=== PATIENT | male | born 2005 | race Caucasian/White ===

== ENCOUNTER 2025-04-10 20:00 | Emergency (ER) | payer BC, MEDICAID, SELFPAY ==
[~2025-04-10] VITALS: Ht 172.7 cm; Wt 84.2 kg
[~2025-04-10 20:00] MED LIST: NO HOME MEDS
[2025-04-10 20:02] VITALS: TEMP 98
--- NOTE | 2025-04-10 20:32 | RADIOLOGY REPORT ---
EXAM: DI KNEE LIMITED (AP/LAT) CLINICAL INDICATION: KNEE PAIN RIGHT TECHNIQUE: DI KNEE LIMITED (AP/LAT) Comparison: None FINDINGS/IMPRESSION: There is no evidence of acute fracture or dislocation. The visualized joint space is well maintained. The alignment is anatomical. There is no radiopaque foreign body.
--- NOTE | 2025-04-10 21:48 | Physician Documentation ---
History of Present Illness ~ Chief Complaint: Laceration Stated Complaint: LEG LAC Time Seen by MD: 20:29 Mode of Arrival: POV, Ambulatory HPI Patient is seen today with complaints of laceration to the lateral aspect of his right knee with pulsatile blood. Patient applied his own tourniquet for about an hour but the bleeding persisted which is what brought the patient in today. Patient does admit to significant history of methamphetamine use. Patient states he had been pulling a bike trailer and got frustrated and pulled it forcibly and accidentally hit his knee with a sharp edge and cut his knee. Patient states he can not remember the last tetanus shot he has had. Patient has no other concern or complaint at this time. Patient states injury happened just prior to arrival today. Tetanus Within 5 Years: No Medication Reconciliation Allergies: Coded Allergies: No Known Allergies (Unverified , 09/26/20) Miscellaneous Medications Home Med List (No Home Medications), (Reported) Past Medical History Past Medical History: GERD Drug Use: methamphetamine Lives with: Family Lives In: Home Review of Systems Constitutional: Denies: chills, fever, weakness Eyes: Denies: pain, blurred vision ENT: Denies: ear pain, nose pain, throat pain, mouth pain Respiratory: Denies: cough, shortness of breath Cardiovascular: Denies: chest pain, palpitations Gastrointestinal: Denies: abdominal pain, nausea, vomiting Genitourinary: Denies: burning, dysuria Male Genitalia: Denies: penile discharge, testicular pain Neurological: Denies: headache, dizziness Musculoskeletal: Denies: pain, swelling Integumentary: Denies: rash, lesions Allergic/Immunologic: Denies: hives, itching Hematologic/Lymphatic: Denies: no symptoms reported Psychiatric: Denies: depression, anxiety Physical Exam Vital Signs: Temperature: 98.0, Heart Rate: 72, Respiratory Rate: 14, BP: 128/84, Pulse Oximetry: 99 Oxygen Flow Rate: 0 Physical Exam General: Awake and Alert, no acute distress. HEENT: Conjunctiva pink, Sclera clear, Mucus Membranes moist. Neck: Supple without masses and tenderness. Resp: Unlabored. Lungs clear to auscultation bilaterally. Heart: Regular Rate and rhythm, normal S1 and S2 without murmur, rub or gallop. Extremities: No cyanosis,clubbing or edema. Skin: Warm and Dry. Procedures Laceration/Wound Repair Laceration : Procedure Note Procedure note: 10 cc of lidocaine 1% with epinephrine was used to achieve local anesthesia of the 4 cm laceration to the lateral aspect of the right knee. Patient tolerated well. Hemostasis was achieved via lidocaine with epi. Wound was irrigated with copious amounts of normal saline and iodine. 4-0 Ethilon running suture was used to achieve closure. Adhesive bandage placed over repair site. Progress Results/Orders Results/Orders Completed Orders - ANDRES TORRES PAC Tetanus/Pertuss/Diph Acell/Pf (Boostrix (04/10/25 21:45) Vital Signs 04/10/25 04/10/25 04/10/25 04/10/25 20:02 20:10 20:10 20:33 Temp 98.0 Pulse 102 89 72 Resp 16 16 18 14 B/P (MAP) 138/88 128/84 (99) 128/84 (99) Pulse Ox 98 100 99 O2 Flow Rate 0 EKG/XRAY/CT/US/VASC/MRI Bone/Soft Tissue X-Ray (Ext.) : Additional Comment X-ray of right knee interpreted by myself today shows no sign of acute fracture, bones in anatomic alignment, no foreign body appreciated DIAGNOSTIC RADIOLOGY Patient: YUNI YANEZ Medical Record: [id number] 2005, Age: 20 Sex: Male Location: ER Patient Status: REG ER Service Date/Time: 04/10/252019 Ordering Physician: CARO HAMMOND MD Exam: KNEE LIMITED (AP/LAT) EXAM: DI KNEE LIMITED (AP/LAT) CLINICAL INDICATION: KNEE PAIN RIGHT TECHNIQUE: DI KNEE LIMITED (AP/LAT) Comparison: None FINDINGS/IMPRESSION: There is no evidence of acute fracture or dislocation. The visualized joint space is well maintained. The alignment is anatomical. There is no radiopaque foreign body. Electronically Signed by:BUCK LUCAS MD Date & Time: 04/10/252029 Dictated by: BUCK LUCAS MD Dictation date and time: 04/10/252029 Primary Care Provider: NO PRIMARY CARE PROVIDER cc: CARO HAMMOND MD ~ Medical Decision Making Findings Patient is seen today with complaints of laceration to the lateral aspect of his right knee with pulsatile blood. Patient applied his own tourniquet for about an hour but the bleeding persisted which is what brought the patient in today. Patient does admit to significant history of methamphetamine use. Patient states he had been pulling a bike trailer and got frustrated and pulled it forcibly and accidentally hit his knee with a sharp edge and cut his knee. Patient states he can not remember the last tetanus shot he has had. Patient has no other concern or complaint at this time. Patient states injury happened just prior to arrival today. Patient tolerated running suture laceration repair well today. Sutures will need to be removed in 7-10 days. Patient will follow up with primary care in 3- 5 days if no better as needed sooner. Return to ED with any worsening, concerning or changing symptoms. Patient may wash with clean soap and water. Avoid immersion with any liquid. Keep repair site clean and dry. Departure Disposition: 01 HOME / SELF CARE / HOMELESS Impression: Primary Impression: Laceration Condition: Improved Discharge Instructions: Laceration Care, Adult, [id number] Additional Instructions: Patient tolerated running suture laceration repair well today. Sutures will need to be removed in 7-10 days. Patient will follow up with primary care in 3- 5 days if no better as needed sooner. Return to ED with any worsening, concerning or changing symptoms. Patient may wash with clean soap and water. Avoid immersion with any liquid. Keep repair site clean and dry. Referrals: NO PRIMARY CARE PROVIDER (PCP) Signature Scribe Signature: No scribe Attestation: No scribe ANDRES TORRES Apr 10, 2025 21:48
[2025-04-10] MEDS: TETanus/Pertussis (Acell)/Diphther VAC/PF (Tdap-Adult) 0.5ml syringe IMVAC ONE (22:11)
[2025-04-10 22:20] VITALS: BP 138/73; PULSE 63; RESP 12; O2SAT 99
== END 2025-04-10 22:23 | disposition home or self-care (01) ==
LOC: ER 20:00
DX: S81.011A Laceration without foreign body, right knee, initial encounter (principal); F15.90 Other stimulant use, unspecified, uncomplicated; W45.8XXA Other foreign body or object entering through skin, initial encounter; Y93.89 Activity, other specified; Y92.89 Other specified places as the place of occurrence of the external cause; Y99.8 Other external cause status
CPT/HCPCS: 12002; 73560; 90471; 90715; 99283; J7030; A6258; A6449

== ENCOUNTER 2025-09-06 12:19 | Inpatient (IN) | payer MEDICAID ==
[~2025-09-06] VITALS: Ht 172.7 cm; Wt 90.9 kg
[~2025-09-06 12:19] MED LIST changes: +CEPH-585 PO
--- NOTE | 2025-09-06 12:32 | Physician Documentation ---
History of Present Illness ~ Chief Complaint: Wound Stated Complaint: R HAND PAIN Time Seen by MD: 12:30 HPI This is a 20-year-old male who admits to a history of methamphetamine and nicotine abuse. Today due to concerns for infection in the right hand, specifically the base of the right thumb. He reports there are two puncture wounds to the lateral aspect of the right thumb. There are two scabs to the dorsum of the right hand. He denies chills or fever, but does note that he feels overall unwell. He presented to the [facility] today, and was directed to the ER. Unknown last tetanus. Tetanus within 5 years?: No Medication Reconciliation Allergies: Coded Allergies: No Known Allergies (Unverified , 09/06/25) Scheduled Cephalexin*Monohydrate* (Keflex*), 1 CAP PO QID Miscellaneous Medications Home Med List (No Home Medications), (Reported) Past Medical History Past Medical History: GERD Drug Use: methamphetamine Lives with: Family Lives In: Home Review of Systems ROS As stated above in the HPI, otherwise all systems are reviewed and negative. Physical Exam Vital Signs: Temperature: 96.3, Source: Temporal, Heart Rate: 98, Respiratory Rate: 15, BP: 151/53, Pulse Oximetry: 100, Weight: 90.900 Physical Exam General: Alert, no apparent distress. Neck: Full range of motion. Respiratory: Lungs clear, no respiratory distress. Chest: No accessory muscle use. Cardiovascular: Regular rate and rhythm, no murmurs. Gastrointestinal: Soft, nontender, nondistended. Bowels sounds present. Extremities: 2+ edema with erythema right hand. Two scabbed areas dorsum right hand. Erythema/purulence/deep wounds to medial/lateral aspect right thumb. Neurologic: Oriented x4. Psychiatric: Normal mood and affect. Skin: Normal color, warm and dry. Progress Progress Note 1440: EDMD [place]wood at bedside for u.s. Notes that he does not see fluid surrounding the flexor tendon but does see soft tissue swelling with marbling. 1444: Contacted integrated logistics operations manager ortho Dr. Powers who agrees to consult. Will page hospitalist. Results/Orders Results/Orders Orders - ROSA PERKINS NP Culture Blood (09/06/25 12:30) Hand, Complete (3vw Min) (09/06/25 12:30) Dressing Orders (09/06/25 12:30) Wound Care Orders (09/06/25 12:30) * Iv Access / Saline Lock * (09/06/25 12:33) Page Hospitalist (09/06/25 ) Vancomycin 2gm/400ml H20 (Peg) (Vancomyc (09/06/25 14:55) Completed Orders - ROSA PERKINS ANIMAL STICKER Cbc/Diff (09/06/25 12:30) Procalcitonin (09/06/25 12:30) BMP (09/06/25 12:30) Lacticsepsis (09/06/25 12:30) C-Reactive Protein (09/06/25 12:30) Hand, Complete (3vw Min) (09/06/25 12:30) Tetanus/Pertuss/Diph Acell/Pf (Boostrix (09/06/25 12:30) Ceftriaxone/X0j-Iaoipfpi 1gm (Rocephin 1 (09/06/25 13:10) Vancomycin Inj (Vancomycin Inj) (09/06/25 14:55) Medications Received in ER Medications (Trade) Dose Ordered Sig/Vel Route PRN Reason Start Time Stop Time Status Last Admin Dose Admin (Boostrix vaccine syringe) 0.5 ml ONCE ONCE IMVAC 09/06/25 12:30 09/06/25 12:32 DC 09/06/25 12:50 0.5 ML Ceftriaxone Sodium 50 ml @ 100 mls/hr ONCE ONCE IV 09/06/25 13:10 09/06/25 13:39 DC 09/06/25 13:33 100 MLS/HR Vital Signs 09/06/25 09/06/25 09/06/25 12:26 13:37 13:41 Temp 96.3 Pulse 98 82 Resp 15 16 16 B/P (MAP) 151/53 137/84 (101) Pulse Ox 100 94 O2 Flow Rate 0 Laboratory Tests Test 09/06/25 12:44 White Blood Count 8.1 Red Blood Count 4.84 Hemoglobin 14.4 Hematocrit 42.8 Mean Corpuscular Volume 88.5 Mean Corpuscular Hemoglobin 29.7 Mean Corpuscular Hemoglobin Concent 33.6 Red Cell Distribution Width 13.3 Platelet Count 570 H Mean Platelet Volume 5.7 L Neutrophils (%) (Auto) 71.6 Lymphocytes (%) (Auto) 17.8 L Monocytes (%) (Auto) 9.0 Eosinophils (%) (Auto) 0.9 Basophils (%) (Auto) 0.7 Neutrophils # (Auto) 5.8 Lymphocytes # (Auto) 1.4 Monocytes # (Auto) 0.7 Eosinophils # (Auto) 0.1 Basophils # (Auto) 0.1 CBC Comment Sodium Level 141 Potassium Level 3.7 Chloride Level 104 Carbon Dioxide Level 32.8 H Anion Gap 4 L Blood Urea Nitrogen 12 Creatinine 0.75 Estimated GFR/1.73 m2 > 90 BUN/Creatinine Ratio 16.0 Glucose Level 91 Lactic Acid Level 1.0 Calcium Level 8.6 C-Reactive Protein 3.64 H Albumin 3.0 L Procalcitonin < 0.05 Chemistry Comments Microbiology Date/Time Source Procedure Growth Status 09/06/25 12:45 Blood Iv Start Blood Culture - Preliminary NEGATIVE (LESS THAN 24 HOURS) Resulted EKG/XRAY/CT/US/VASC/MRI Bone/Soft Tissue X-Ray (Spine) : Additional Comment [place] [id number] DIAGNOSTIC RADIOLOGY Patient: YUNI YANEZ Medical Record: [id number] [facility] 2005, Age: 20 Sex: Male Location: ER Patient Status: REG ER Service Date/Time: 09/06/25 1230 Ordering Physician: ROSA PERKINS NP Exam: HAND, COMPLETE (3VW MIN) EXAM: DI HAND, COMPLETE (3VW MIN) CLINICAL INDICATION: trauma, swelling TECHNIQUE: DI HAND, COMPLETE (3VW MIN) Comparison: None FINDINGS/IMPRESSION: There is no evidence of acute fracture or dislocation. Diffuse soft tissue swelling The alignment is anatomical. There is no radiopaque foreign body. Electronically Signed by:BUCK LUCAS MD Date & Time: 09/06/25 1308 Dictated by: BUCK LUCAS MD Dictation date and time: 09/06/25 1308 Primary Care Provider: NO PRIMARY CARE PROVIDER cc: ROSA PERKINS ANIMAL STICKER ~ Medical Decision Making Additional information obtaine: old records Findings Patient is a poor historian. Seen 04/17/25 for suture removal. Differential Dx:Considerations: Include: Abscess, Cellulitis Additional Comment Assessment and Plan: Cellulitis, right hand, severe nonpurulent with high risk for MRSA The patient presents with marked swelling and cellulitis of the right hand base of thumb with two apparent puncture wounds of unknown etiology. Given the patient's history of methamphetamine use and homelessness, along with the presence of puncture wounds, this presentation is concerning for injection- related skin and soft tissue infection. Risk Stratification: The patient meets criteria for severe nonpurulent cellulitis requiring MRSA coverage based on multiple high-risk features: active injection drug use, penetrating trauma (puncture wounds), and elevated inflammatory markers (CRP). While the patient does not meet SIRS criteria (afebrile, normal vital signs, normal WBC), the combination of injection drug use and penetrating trauma mandates empiric MRSA and streptococcal coverage per IDSA guidelines. [1] Microbiology Considerations: The majority of cellulitis cases are nonculturable, with causative bacteria identified in only 15% of cases. When organisms are identified, ?-hemolytic Streptococcus and Staphylococcus aureus are most common. In patients with injection drug use, MRSA prevalence is significantly elevated, and empiric coverage is strongly recommended. [1-2] Diagnostic Workup: Blood cultures were obtained prior to antibiotic administration as recommended for patients with risk factors including injection drug use. Routine cultures of cutaneous aspirates or biopsies are not indicated for typical cellulitis, but blood cultures are specifically recommended in this clinical context. Given the puncture wounds, consideration was given to obtaining wound cultures, though optimal timing would be post-debridement if surgical intervention becomes necessary. Treatment Plan: Initiated empiric intravenous vancomycin with dosing calculated for 90 kg body weight with normal renal function (loading dose 2,250 mg, followed by maintenance dosing targeting AUC 400-600). Vancomycin was selected as it provides coverage against both MRSA and streptococci, which is the recommended empiric regimen for severe nonpurulent cellulitis in patients with injection drug use. The patient also received two grams Ceftriaxone IV. His tetanus was updated. Alternative agents considered included linezolid, daptomycin, or ceftaroline, all of which provide dual MRSA and streptococcal coverage. Vancomycin was chosen as first-line therapy per IDSA guidelines for severe infection. Duration: Plan for minimum 5-day course of antimicrobial therapy with extension if infection has not improved within this timeframe. Clinical response will be assessed daily with particular attention to reduction in erythema, swelling, and tenderness. Departure Time of Disposition: 14:53 Disposition: ADMITTED INPATIENT Admitted to Inpatient Unit: yes, to hospitalist Impression: Primary Impression: Cellulitis of right hand Referrals: NO PRIMARY CARE PROVIDER (PCP) Signature Scribe Signature: x Attestation: The note accurately reflects work and decisions made by me.Rosa Springer NP 09/06/25 13:15 ROSA PERKINS NP Sep 06, 2025 12:32
[2025-09-06] MEDS: TETanus/Pertussis (Acell)/Diphther VAC/PF (Tdap-Adult) 0.5ml syringe IMVAC ONE (12:50)
[2025-09-06 12:52] LABS: MEAN PLATELET VOLUME 5.7 FL (7.4-10.4); RED CELL DISTRIBUTION WIDTH 13.3 % (11.5-14.5)
[2025-09-06 13:10] LABS: CREATININE 0.75 MG/DL (0.60-1.10); TOTAL CARBON DIOXIDE 32.8 MMOL/L (24-32); eCRCL 149 ML/MIN; eGFR > 90 ML/MIN
--- NOTE | 2025-09-06 13:10 | RADIOLOGY REPORT ---
EXAM: DI HAND, COMPLETE (3VW MIN) CLINICAL INDICATION: trauma, swelling TECHNIQUE: DI HAND, COMPLETE (3VW MIN) Comparison: None FINDINGS/IMPRESSION: There is no evidence of acute fracture or dislocation. Diffuse soft tissue swelling The alignment is anatomical. There is no radiopaque foreign body.
[2025-09-06] MEDS: CefTRIAXone/D5W-Rocephin 1gm 50 ML IV ONE (13:33)
[2025-09-06] MEDS ORDERED: HYDROcodone/acetaminophen 10/325mg tab PO PRN (14:55)
[2025-09-06] MEDS ORDERED: ondansetron/PF 4mg/2ml inj IV PRN (14:55)
[2025-09-06] MEDS ORDERED: bisacodyl 10mg suppository rectal RC PRN (14:55)
[2025-09-06] MEDS ORDERED: potassium Cl 40MEQ/1/2NS 520ml 520 ML IV PRN (14:55)
[2025-09-06] MEDS ORDERED: vancomycin inj 2,000 MG in normal saline 500ml IV soln 500 ML IV ONE (14:55)
[2025-09-06] MEDS ORDERED: magnesium Cl slow-release 64mg tablet PO PRN (14:55)
[2025-09-06] MEDS ORDERED: magnesium sulf-water 2g/50mL 50 ML IV PRN (14:55)
[2025-09-06] MEDS ORDERED: potassium Cl 20 mEq SR tablet PO PRN ×2 (14:55)
[2025-09-06] MEDS ORDERED: magnesium sulf-water 4G/100mL 100 ML IV PRN (14:55)
[2025-09-06] MEDS ORDERED: magnesium hydroxide 30ml (MOM) UD suspension PO PRN (14:55)
[2025-09-06] MEDS: VANCOMYCIN 2GM/400ML H20 (PEG) 400 ML IV ONE (15:22)
[2025-09-06] MEDS: normal saline 1000ml 1,000 ML IV SCH (15:23)
[2025-09-06 18:00] VITALS: BP 129/81; PULSE 88; RESP 16; TEMP 97.7; O2SAT 98
[2025-09-06] MEDS: K and/or MAG REPLACEMENT MC SCH (19:37)
[2025-09-06 20:00] VITALS: RESP 18; O2SAT 98
[2025-09-06] MEDS: heparin, porcine 5000 units/ml vial SQ SCH (20:07)
--- NOTE | 2025-09-06 20:11 | HISTORY AND PHYSICAL ---
History & Physical Providers to ~ History of Present Illness Reason for Admit\Complaint: Right thumb wound History of Present Illness This is a 20-year-old male who admits to a history of methamphetamine and nicotine abuse. Today due to concerns for infection in the right hand, specifically the base of the right thumb. He reports there are two puncture wounds to the lateral aspect of the right thumb. There are two scabs to the dorsum of the right hand. He denies chills or fever, but does note that he feels overall unwell. He presented to the [facility] today, and was directed to the ER. In ER patient received tetanus vaccine and IV ceftriaxone one dose. Hospitalist services contacted for admission and further management. Allergies: Coded Allergies: No Known Allergies (Unverified , 09/06/25) Home Medications Home Medications Active Keflex* (Cephalexin HCl) 500 Mg Capsule 1 Cap PO QID Reported No Home Medications (Home Med List) Each Past Medical History Past Medical History GERD Past Surgical History Surgical History Comment No Pertinent surgical history Past Social History Social History Comment As per patient his mom lives in [facility], he is currently homeless and unemployed. Admitted that he used meth day before yesterday does smoke cigarettes. He is able to walk . ROS ROS Review of system as mentioned above in HPI rest of the review of system unremarkable Exam Vitals: Vital Signs Date Time Temp Pulse Resp B/P (MAP) Pulse Ox O2 Delivery O2 Flow Rate FiO2 09/06/25 18:00 97.7 88 16 129/81 (97) 98 Room Air 09/06/25 13:41 0 General: General-patient not in any acute distress, alert awake oriented, age-appropriate , ill apearing HEENT-atraumatic normocephalic, neck supple without elevated JVD, no thyromegaly or carotid bruit. No lymphadenopathy bilaterally. Eyes-no icterus or pallor seen in eyes Chest-clear to auscultation bilaterally, breathing nonlabored no tachypnea, no wheezing, no crepitation, no crackles. Heart-S1-S2 normal, regular heart rate no murmur Abdomen bowel sounds positive on auscultation, soft nondistended nontender no guarding, no rigidity Skin /Extremity- open wound present over flexor surface of right thumb , no pus discharge noticed on palpation , patient is unable to flex and make a reproducer from right hand no pedal edema able to move all 4 extremities/ambulate Neurology-grossly intact, nonfocal alert awake oriented Psychiatry - patient is not confused or agitated cooperated during physical examination Diagnostic Data Last Recorded Lab Results: 09/06/25 1244 09/06/25 1244 Advance Care Planning Advanced Care plannin - 30 Minutes Additional Plan This is a 20-year-old male who admits to a history of methamphetamine and nicotine abuse. He is admitted today for open wound specifically the base of the right thumb. ER provider Contacted instructional writer ortho Dr. Powers who agrees to consult. Patient is started on IV antibiotic therapy we will keep patient NPO after midnight Patient is strongly advised to stop recreational drugs and tobacco and risk and consequences explained. Patient he is not taking any medication in outpatient setting and does not have any PCP. Follows with minor suarez. We will continue to monitor patient's labs and vitals closely . All labs, diagnostic workup, old records and ER records reviewed . Code status discussed with the patient patient wishes full code . Time spent in discussing code status 16 minutes. Further management depending on response to treatment and as per recommendation by talent development specialist I will continue to follow patient in a.m. Date of Service: Sep 06, 2025 Billing Provider: CONSTANCE PEREZ MD Common Visit Codes: [id number] INP/OBS CARE (HIGH) Secondary Visit Codes: 16538-[id number] CARE PLAN 30 MINUTES CONSTANCE PEREZ MD Sep 06, 2025 20:11
[2025-09-06] MEDS: nicotine 14mg patch - 24hr TD SCH (21:33)
[2025-09-06 22:00] VITALS: BP 124/56; PULSE 96; RESP 18; TEMP 97.9; O2SAT 98
[2025-09-06] MEDS: vancomycin/NS 1 GM ADD-VANTAGE 250 ML IV SCH (23:03)
[2025-09-07] VITALS (7 sets, daily range): BP systolic 121–126; BP diastolic 44–66; PULSE 76–99; RESP 15–18; TEMP 97.4–99.4; O2SAT 99–100
[2025-09-07] MEDS: HYDROcodone/acetaminophen 5mg/325mg tablet PO PRN (05:12)
[2025-09-07 06:46] LABS: MEAN PLATELET VOLUME 5.9 FL (7.4-10.4); RED CELL DISTRIBUTION WIDTH 13.3 % (11.5-14.5)
[2025-09-07 07:13] LABS: CREATININE 0.72 MG/DL (0.60-1.10); TOTAL CARBON DIOXIDE 30.0 MMOL/L (24-32); eCRCL 156 ML/MIN; eGFR > 90 ML/MIN
[2025-09-07] MEDS ORDERED: morphine 4 MG/ML inj SYRINge IV PRN ×2 (13:06)
--- NOTE | 2025-09-07 14:01 | CONSULTATION REPORT ---
History of Present Illness Providers to CC ~ Reason for Admit\Admit Dx: Right thumb INFECTION Refering MD: dR [email or web address] History of Present Illness This is a 20-year-old male who admits to a history of methamphetamine and nicotine abuse. Today due to concerns for infection in the right hand, specifically the base of the right thumb. He reports there are two puncture wounds to the lateral aspect of the right thumb. Because of increased pain and swelling he presented to the ER where he was admitted. He denies any injection site or puncture wounds or any injury such as a bug bite Allergies: Coded Allergies: No Known Allergies (Unverified , 09/06/25) Home Medications Home Medications Active Keflex* (Cephalexin HCl) 500 Mg Capsule 1 Cap PO QID Reported No Home Medications (Home Med List) Each Physical Exam Last Vital Signs Recorded: Temperature: 99.4, Source: Axillary, Heart Rate: 95, Respiratory Rate: 18, BP: 122/46, Pulse Oximetry: 100, Weight: 90.900 General Appearance: alert, no apparent distress Extremities There is moderate swelling of the right thumb with an abrasion. I do not see any deep abscess or extension into the tendon sheath or the joint. His thumb flexor and extensor is functioning. He admits to having sensation to light touch of the tip of the thumb. There was no tenderness over the index where the palm where the flexor tendons. Results Diagram Lab Result Diagram: 09/07/25 0547 09/07/25 0547 Assessment/Plan Problems/Diagnosis: (1) Wound cellulitis Additional Plan Continue antibiotics and wound dressing changes with the wound care. I will follow up with him and visit him in the next 24 hours to see if he is making progress. STEFANO TERESA Jr., MD Sep 07, 2025 14:01
[2025-09-07] MEDS: VANCOMYCIN/WATER FOR INJ (PEG) 1.5GM/300 ML IVPB IV SCH (16:32)
[2025-09-07] MEDS: VANCOMYCIN LEVEL IV ONE (19:04)
--- NOTE | 2025-09-07 19:26 | PROGRESS NOTE ---
Daily Progress Note Providers to CC ~ Antibiotic Timeout Antibiotic Ordered?: Yes Subjective Patient was seen in presence of nursing staff today. Wound dressing done for right thumb wound . Patient was evaluated by Dr. Powers today. he recommended to Continue antibiotics and wound dressing changes with the wound care. he will follow up with him in the next 24 hours to see if he is making progress. Objective Vital Signs Date Time Temp Pulse Resp B/P (MAP) Pulse Ox O2 Delivery O2 Flow Rate FiO2 09/07/25 18:00 97.4 99 16 121/54 (76) 99 Room Air 09/06/25 13:41 0 Result Diagram: 09/07/25 0547 09/07/25 0547 General-patient not in any acute distress, alert awake oriented, age-appropriate HEENT-atraumatic normocephalic, neck supple without elevated JVD, no thyromegaly or carotid bruit. No lymphadenopathy bilaterally. Eyes-no icterus or pallor seen in eyes Chest-clear to auscultation bilaterally, breathing nonlabored no tachypnea, no wheezing, no crepitation, no crackles. Heart-S1-S2 normal, regular heart rate no murmur Abdomen bowel sounds positive on auscultation, soft nondistended nontender no guarding, no rigidity Skin /Extremity- wound dressing present over right thumb. patient is unable to flex and make a poultry killer from right hand no pedal edema able to move all 4 extremities/ambulate Neurology-grossly intact, nonfocal alert awake oriented Psychiatry - patient is not confused or agitated cooperated during physical examination Problem\Assessment\Plan This is a 20-year-old male who admits to a history of methamphetamine and nicotine abuse. He is admitted today for open wound specifically the base of the right thumb. ER provider Contacted concrete inspector ortho Dr. Powers who agrees to consult. # right thumb wound- Patient is started on IV antibiotic therapy. Dr. Powers consulted on this patient and he recommended to Continue antibiotics and wound dressing changes with the wound care. he will follow up with him in the next 24 hours to see if he is making progress. # history of methamphetamine and nicotine abuse.Patient is strongly advised to stop recreational drugs and tobacco and risk and consequences explained. Patient he is not taking any medication in outpatient setting and does not have any PCP. # Code status discussed with the patient patient wishes full code . We will continue to monitor patient's labs and vitals closely . Further management depending on response to treatment and as per recommendation by air quality specialist I will continue to follow patient in a.m. Date of Service: Sep 07, 2025 Billing Provider: CONSTANCE PEREZ MD Common Visit Codes: [id number] INP/OBS CARE(MOD) CONSTANCE PEREZ MD Sep 07, 2025 19:26
[2025-09-08 05:52] LABS: MEAN PLATELET VOLUME 5.8 FL (7.4-10.4); RED CELL DISTRIBUTION WIDTH 13.5 % (11.5-14.5)
[2025-09-08 06:00] VITALS: BP 127/65; PULSE 68; RESP 15; TEMP 97.6; O2SAT 99
[2025-09-08 06:10] LABS: CREATININE 0.69 MG/DL (0.60-1.10); TOTAL CARBON DIOXIDE 30.2 MMOL/L (24-32); eCRCL 162 ML/MIN; eGFR > 90 ML/MIN
[2025-09-08 08:00] VITALS: RESP 15; O2SAT 99
[2025-09-08] MEDS ORDERED: ACET-1008 PO (13:37)
[2025-09-08] MEDS ORDERED: NICO-631 TD (13:37)
[2025-09-08] MEDS ORDERED: CEPH250T PO (13:37)
[2025-09-08] MEDS ORDERED: VANCOMYCIN LEVEL IV ONE (15:30)
--- NOTE | 2025-09-08 19:36 | DISCHARGE SUMMARY ---
Discharge Summary Providers to CC ~ Discharge Summary Admission Diagnosis: Right hand cellulitis , substance abuse for meth, tobacco use Hospital Course DATE OF ADMISSION: 09/06/25 DATE OF DISCHARGE:09/08/25 CBC testing done on September 08, 2025 WBC 6.6 hemoglobin 12.9 hematocrit 38.4 platelet count 434. Serum chemistry done on September 08, 2025 sodium 139 potassium 4.0 creatinine 0.69 GFR greater than 90 CRP 3.64 lactic acid 1.0 pr ocalcitonin 0.05. Blood culture showed no growth after two days HAND, COMPLETE (3VW MIN)FINDINGS/IMPRESSION: There is no evidence of acute fracture or dislocation. Diffuse soft tissue swelling The alignment is anatomical. There is no radiopaque foreign body. Discharge Diagnosis\Comment: Right thumb wound cellulitis, history of methamphetamine and nicotine abuse Operations\Procedures: None Consultants: Dr. Powers Complications: None Condition on DC: Stable New Medications: Cephalexin*Monohydrate* (Keflex*) 250 Mg Capsule 1 CAP PO Q8H for 7 Days, #21 CAP Nicotine 14 MG Patch* (Habitrol 14 MG Patch*) 1 Each Patch.td24 1 PATCH TD DAILY for 30 Days, #30 PATCH Changed Medications: Acetaminophen (Tylenol) 325 Mg Tablet 1 TAB PO Q8H PRN for pain or fever for 7 Days, #20 TAB (Changed from: QDAY PRN; 30; 30) Discontinued Medications: Home Med List (No Home Medications) Each Discharge Summary: This is a 20-year-old male who admits to a history of methamphetamine and nicotine abuse. He is admitted today for open wound specifically the base of the right thumb. ER provider Contacted [facility] Dr. Powers who agrees to consult. # right thumb wound- Patient is started on IV antibiotic therapy. Dr. Powers consulted on this patient and he recommended to Continue antibiotics and wound dressing changes with the wound care. he will follow up with him in the next 24 hours to see if he is making progress. # history of methamphetamine and nicotine abuse.Patient is strongly advised to stop recreational drugs and tobacco and risk and consequences explained. Patient he is not taking any medication in outpatient setting and does not have any PCP. # Code status discussed with the patient patient wishes full code . Patient is feeling better he has been afebrile and getting discharged home in stable condition. Dr. Powers is okay to discharge patient today. Patient is seen and examined on the day of discharge. All labs, diagnostic workup and discharge plan discussed with patient before her discharge. All questions and queries answered to the best of my professional medical knowledge. I heard patient's concerns and address appropriately. Patient was cleared by Physical therapy team for home discharge. rn case manager Genoveva involved in patient's discharge plan. Discharge instructions provided to the patientPlease follow-up with the urgent care or [facility] for wound checkup in one week. Take antibiotics as recommended. Strongly advised to stop recreational drug tobacco and alcohol and risks explained. Needs daily wound dressing for 7-10 days . General-patient not in any acute distress, alert awake oriented, age-appropriate HEENT-atraumatic normocephalic, neck supple without elevated JVD, no thyromegaly or carotid bruit. No lymphadenopathy bilaterally. Eyes-no icterus or pallor seen in eyes Chest-clear to auscultation bilaterally, breathing nonlabored no tachypnea, no wheezing, no crepitation, no crackles. Heart-S1-S2 normal, regular heart rate no murmur Abdomen bowel sounds positive on auscultation, soft nondistended nontender no guarding, no rigidity Skin /Extremity- wound dressing present over right thumb. patient is unable make a full fermenter helper from right hand . flexion over right hand is improved as compared to yesterday no pedal edema able to move all 4 extremities/ambulate Neurology-grossly intact, nonfocal alert awake oriented Psychiatry - patient is not confused or agitated cooperated during physical examination *Problems/Diagnosis: (1) Wound cellulitis Status: Acute Total Time Spent on D/C: > 30 Minutes Date of Service: Sep 08, 2025 Billing Provider: CONSTANCE PEREZ MD Common Visit Codes: 30929-JJC/OBS DISCH DAY >30min CONSTANCE PEREZ MD Sep 08, 2025 19:36
== END 2025-09-08 15:00 | disposition home or self-care (01) | DRG 383 ==
LOC: ER 12:20 → ED HOLD 15:00 → ORTHO 4S 17:25
PROVIDERS: ADMIT Internal Medicine; ATTEND Internal Medicine
PROC: 3E0234Z Introduction of Serum, Toxoid and Vaccine into Muscle, Percutaneous Approach (ICD-10-PCS; principal; 2025-09-06)
DX: L03.011 Cellulitis of right finger (principal); Z59.00 Homelessness unspecified; F15.10 Other stimulant abuse, uncomplicated; Z23 Encounter for immunization; Z56.0 Unemployment, unspecified; F17.210 Nicotine dependence, cigarettes, uncomplicated; K21.9 Gastro-esophageal reflux disease without esophagitis
CPT/HCPCS: 36415; 73130; 80048; 80053; 80202; 83605; 84145; 85025; 86140; 87040; 87081; 90471; 90715; 96365; 99285; A6212; A6222; A6223; A6258; A6402; A6446; A6449; G0378; J0696; J1644; J3373; J3375; J7030